=== PATIENT | male | born 1945 | race Caucasian/White ===

== ENCOUNTER 2019-08-24 13:24 | Emergency (ER) | payer MEDICARE ==
[~2019-08-24] VITALS: Ht 177.8 cm; Wt 72.7 kg
[2019-08-24 15:34] VITALS: BP 151/86
== END 2019-08-24 15:38 | disposition home or self-care (01) ==
LOC: EMS 13:25
DX: R25.2 Cramp and spasm (principal); I73.9 Peripheral vascular disease, unspecified; I10 Essential (primary) hypertension